=== PATIENT | male | born 1950 | race Caucasian/White ===

== ENCOUNTER 2025-04-19 19:48 | Emergency (ER) | payer MEDICARE, OTHER ==
[~2025-04-19] VITALS: Ht 177.8 cm; Wt 104.3 kg
[2025-04-19] MEDS ORDERED: Ketorolac Tromethamine 15mg Vial IV ONE (23:15)
[2025-04-19] MEDS ORDERED: NS 1,000 ML IV SCH (23:15)
[2025-04-20] MEDS ORDERED: OXAYDO5 M1 PO (08:58)
[2025-04-20] MEDS ORDERED: ONDA4ODT MM (08:59)
== END 2025-04-20 09:07 | disposition home or self-care (01) ==
LOC: ER 19:48
DX: S32.021A Stable burst fracture of second lumbar vertebra, initial encounter for closed fracture (principal); S22.088A Other fracture of T11-T12 vertebra, initial encounter for closed fracture; E86.0 Dehydration; N40.0 Benign prostatic hyperplasia without lower urinary tract symptoms; Z59.89 Other problems related to housing and economic circumstances; W11.XXXA Fall on and from ladder, initial encounter
CPT/HCPCS: 70450; 72125; 72128; 72131; 72170; 96374; 99284-25; J1885; J7030